=== PATIENT | female | born 1955 | race Two or more races ===

== ENCOUNTER 2024-02-16 08:37 | Emergency (ER) | payer OTHER ==
[~2024-02-16] VITALS: Ht 167.6 cm; Wt 62.1 kg
--- NOTE | 2024-02-16 09:09 | ED.PDOC ---
Musculoskeletal HPI Comments Portions of this chart may have been created with an modal fluency direct voice recognition software. Occasional wrong-word or "sound-alike" substitutions may have occurred due to the inherent limitations of voice recognition software. Please read the chart carefully and recognize, using context, where these substitutions have occurred. 68-year-old female presents with history of right hip osteoarthritis, lumbar spondylosis, multilevel lumbar DDD, lumbar radiculopathy, L5-S1 fusion, right pedicle screw fixation presents with a chief complaint of right anterior hip pain. She is new to the area. Recently moved from [place]. Her reports the pain started several days ago in his currently located at the right proximal anterior humerus and the pain radiates down the leg. Worsens with ambulation improves at rest. Denies trauma injury. Possible culprit: Recent drive Seen at urgent care and was prescribed gabapentin with no improvement. Patient was seen pain management in [place]. Received a right joint injection on October 20 that gave 100% relief. Patient also received a epidural steroid injection at L3-L4 on November 03 they gave 100 % relief. She is currently pending PCP appointment this time. Denies history of chronic steroid use or history of osteoporosis Denies any history of cancer Denies fevers chills night sweats nausea vomiting unintentional weight loss Denies IV drug use history of HIV/TB Denies abdominal "tearing" pain Denies syncope Denies urinary incontinence or urinary changes Denies numbness tingling of the groin or inner thigh Denies previous back procedure or surgery Chief Complaint: Lower Extremity Time Seen by MD: 08:54 Primary Care Provider: [facility] Reviewed Notes: Nurses Notes, Medications, Allergies Allergies: Coded Allergies: NO KNOWN ALLERGIES (Unverified , 02/16/24) Information Source: Patient Mode of Arrival: Ambulatory Social History Smoker: Non-Smoker Alcohol: Denies ETOH Use Drugs: Denies Drug Use All Other Systems: Reviewed and Negative (per hpi) Physical Exam General Appearance: No Apparent Distress, Normal HEENT: Normal ENT Inspection, Pharynx Normal, TMs Normal Neck: Full Range of Motion, Non-Tender, Normal, Normal Inspection Respiratory: Chest Non-Tender, Lungs Clear, No Accessory Muscle Use, No Respiratory Distress, Normal Breath Sounds Cardiovascular: No Edema, No JVD, No Murmur, No Gallop, Normal Peripheral Pulses, Regular Rate/Rhythm Breast Exam: Deferred Gastrointestinal: No Organomegaly, Non Tender, No Pulsatile Mass, Normal Bowel Sounds, Soft Genitalia: Deferred Pelvic: Deferred Rectal: Deferred Extremities: No calf tenderness, Normal capillary refill, Normal inspection, Normal range of motion, Non-tender, No pedal edema Musculoskeletal : Extremity Location: Back (Inspection. Pain with high marching. Distal neuro sensation intact) Apperance: Normal Neurologic: Alert, gambling counsellor II-XII nml as Tested, No Motor Deficits, Normal Affect, Normal Mood, No Sensory Deficits Cerebellar Function: Normal Reflexes: Normal Skin: Dry, Normal Color, Warm Lymphatic: No Adenopathy Was a procedure done? Was a procedure done?: No Differential Diagnosis EXT Differential Diagnosis: Other X-Ray, Labs, Meds, VS Vital Signs Date Time Temp Pulse Resp B/P (MAP) Pulse Ox O2 Delivery O2 Flow Rate FiO2 02/16/24 11:48 68 18 124/86 02/16/24 10:54 68 16 162/81 02/16/24 09:22 83 16 98 Room Air 02/16/24 09:21 98.5 83 16 153/75 (101) 98 98.5 02/16/24 08:53 98.5 83 16 153/75 (101) 98 Current Medications Medications (Trade) Dose Ordered Sig/Jacky Route Start Time Stop Time Status Last Admin Hydromorphone HCl (Dilaudid Injection) 0.5 mg ONCE ONCE IM 02/16/24 10:45 02/16/24 10:46 DC 02/16/24 10:54 PATIENT: ELIJAH VARGAST: [id number]: [id number] : 1955 LOC: ER ROOM / BED: / AGE / SEX: 68 / F ADM STATUS: REG ER SERVICE 1033 ORDERING PHYSICIAN: ANTOINETTE MASSEY NP PROCEDURE(s): RHIP - R HIP COMPLETE XRAY REASON: pain ORDER NUMBER(s): [id number], ACCESSION NUMBER(s): [id number] RIGHT HIP RADIOGRAPHS CLINICAL HISTORY: pain TECHNIQUE: AP and oblique views of the right hip were obtained. COMPARISON: None FINDINGS: There is no evidence of fracture or dislocation. The alignment of the right hip joint is appropriate. There is mild joint space narrowing in the right hip.. There is fusion hardware at the L5-S1 level. The soft tissues appear within normal limits. IMPRESSION: 1. Mild joint space narrowing in the right hip.. HS:Y ATED BY: CARRILLO TRAVIS MD DICTATED DATE/TIME: 02/16/241051 SIGNED BY: CARRILLO TRAVIS MD SIGNED DATE/TIME: 02/16/241051 CC: X-Ray, Labs, Meds, VS Comment I considered cauda equina, spinal cord compression, vertebral malignancy/mets, acute spinal fracture, vertebral osteomyelitis, epidural abscess, infected or o bstructed kidney stone, however this is less likely as the patient does not present with lower back pain red flags symptoms such as bowel or bladder dysfunction, saddle anesthesia, paresthesia, and without any history of malignancy or recent back trauma or spinal interventions. Therefore further imaging studies such as a lumbar MRI were not indicated on today's visit. Presentation most consistent with nonemergent musculoskeletal etiology versus nonemergent disc herniation. ED workup: Defer imaging and lab work for outpatient follow up at this time Disposition: Discharge. Strict return precautions discussed with the patient with full understanding. Supportive care advised (rest, ice, heat, NSAIDs, stretching exercises) Massage muscles with cold pack or ice for 20 minutes 4 times per day. Usually most useful if there is swelling during the first 48 hours Heating pad on the most painful area for 20 minutes to relieve muscle spasm Sleep and the most comfortable sleeping position (usually on the side with knees bent) Light stretching, no strenuous activity, avoid frequent bending, avoid carrying heavy objects Discussed possible benefits of yoga and acupuncture Return precautions discussed including Inability to walk/bear weight Paresthesia/weakness/leg pain Fecal/urinary incontinence Any worsening symptoms Time of 1ST Reevaluation: 10:41 Reevaluation 1ST: Improved Time of 2ND Reevaluation: 11:23 Reevaluation 2ND: Improved Patient Education/Counseling: Diagnosis, Treatment Family Education/Counseling: Diagnosis, Treatment Departure 1 Departure Time of Disposition: 11:23 Impression: Primary Impression: Chronic hip pain Qualified Codes: M25.551 - Pain in right hip; G89.29 - Other chronic pain Additional Impression: Chronic back pain Qualified Codes: M54.41 - Lumbago with sciatica, right side; G89.29 - Other chronic pain Disposition: 01 HOME / SELF CARE / HOMELESS Condition: Stable Discharged With: Spouse Critical Care Note Critical Care Time?: No Stability Stability form required: No Heart Score Heart Score: Heart Score Response (Comments) Value History N/A 0 EKG N/A 0 Age N/A 0 Risk Factors N/A 0 Troponin N/A 0 Total 0 ANTOINETTE MASSEY NP Feb 16, 2024 09:09
[2024-02-16 09:21] VITALS: TEMP 98.5
[2024-02-16 09:22] VITALS: O2SAT 98
--- NOTE | 2024-02-16 10:53 | DVH ---
RIGHT HIP RADIOGRAPHS CLINICAL HISTORY: pain TECHNIQUE: AP and oblique views of the right hip were obtained. COMPARISON: None FINDINGS: There is no evidence of fracture or dislocation. The alignment of the right hip joint is appropriate. There is mild joint space narrowing in the right hip.. There is fusion hardware at the L5-S1 level. The soft tissues appear within normal limits. IMPRESSION: 1. Mild joint space narrowing in the right hip.. HS:Y
[2024-02-16] MEDS: HYDROmorphone HCL 2 MG/ML VL/or syr IM ONE (10:54)
[2024-02-16 11:48] VITALS: BP 124/86; PULSE 68; RESP 18
== END 2024-02-16 11:23 | disposition home or self-care (01) ==
LOC: ER 08:37
DX: M16.11 Unilateral primary osteoarthritis, right hip (principal); G89.29 Other chronic pain; M54.41 Lumbago with sciatica, right side
CPT/HCPCS: 73502; 96372; 99283; J1171